=== PATIENT | female | born 1980 | race Caucasian/White ===

== ENCOUNTER 2017-01-15 02:31 | Emergency (ER) | payer MEDICAID ==
[~2017-01-15] VITALS: Ht 165.1 cm; Wt 68.0 kg
--- NOTE | 2017-01-15 02:35 | NUR ---
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 PT PLACED ON MONITOR WITH SR ON THE MONITOR. VS WNL. PT VERY IRRITABLE. RAC 20G IV PLACED WITH LABS DRAWN. AWAITING MD ORDERS.
[2017-01-15] MEDS ORDERED: ONDANSETRON HCL/PF 4 MG/2 ML VIAL IVP ONE (03:00)
[2017-01-15] MEDS ORDERED: IV NS 0.9% 1,000 ML BAG IV ONE (03:00)
[2017-01-15] MEDS ORDERED: HYDROMORPHONE INJ 2 MG/ML DISP.SYRIN IV ONE (03:00)
[2017-01-15] MEDS ORDERED: ONDANSETRON HCL/PF 4 MG/2 ML VIAL ONE (03:02)
[2017-01-15] MEDS ORDERED: HYDROMORPHONE INJ 2 MG/ML DISP.SYRIN ONE (03:02)
[2017-01-15 03:05] LABS: BASOPHILS # (AUTO) 0.1 /CMM (0.0-0.2); BASOPHILS % (AUTO) 0.5 % (0.0-2.0); EOSINOPHILS # (AUTO) 0.3 /CMM (0.0-0.7); EOSINOPHILS % (AUTO) 2.2 % (0.0-6.0); HEMATOCRIT 40 % (33-45); HEMOGLOBIN 13.3 g/dL (11.5-14.8); LYMPHOCYTES % (AUTO) 13.6 % (20.0-44.0); MEAN CORPUSCULAR HEMOGLOBIN 29 PG (26.0-33.0); MEAN CORPUSCULAR HGB CONC 34 g/dl (31.0-36.0); MEAN CORPUSCULAR VOLUME 87 fL (82-100); MONOCYTES # (AUTO) 0.6 /CMM (0.1-1.30); MONOCYTES % (AUTO) 3.8 % (2.0-12.0); NEUTROPHILS # (AUTO) 11.9 /CMM (1.8-8.9); NEUTROPHILS % (AUTO) 79.9 % (43.0-81.0); PLATELET COUNT (AUTO) 245 /CMM (150-450); RDW COEFFICIENT OF VARIATION 12.4 (11.5-15.0); RED BLOOD CELL COUNT(AUTO) 4.55 MIL/uL (4.0-5.2); WHITE BLOOD COUNT (AUTO) 14.9 K/uL (4.3-11.0)
--- NOTE | 2017-01-15 03:15 | NUR ---
PT IS IN CT
[2017-01-15 03:24] LABS: ALANINE AMINOTRANSFERASE 25 U/L (12-78); ALBUMIN 4.2 g/dL (3.4-5.0); ALKALINE PHOSPHATASE 51 U/L (46-116); ASPARTATE AMINOTRANSFERASE 14 U/L (15-37); BILIRUBIN,DIRECT 0.1 mg/dL (0.0-0.2); BILIRUBIN,TOTAL 0.5 mg/dL (0.2-1.0); CALCIUM, SERUM 9.5 mg/dL (8.5-10.1); CARBON DIOXIDE 26 mmol/L (21-32); CHLORIDE 104 mmol/L (98-107); CREATININE 0.8 mg/dL (0.6-1.3); GLUCOSE 151 mg/dL (74-106); LIPASE 362 U/L (73-393); POTASSIUM 3.3 mmol/L (3.5-5.1); SODIUM SERUM 142 mmol/L (136-145); TOTAL PROTEIN, SERUM 7.5 g/dL (6.4-8.2); UREA NITROGEN, BLOOD 14 mg/dL (7-18)
[2017-01-15 03:26] LABS: INR 1.05 (0.87-1.13); PROTHROMBIN TIME 10.9 SECS (9.5-12.7); TROPONIN I < 0.017 ng/mL (0.00-0.056)
--- NOTE | 2017-01-15 03:27 | NUR ---
PT RETURN FROM CT SCAN
--- NOTE | 2017-01-15 04:10 | NUR ---
URINE COLLECTED. SENT TO LAB
[2017-01-15 04:33] LABS: APPEARANCE,URINE SL CLOUDY (CLEAR); BILIRUBIN,URINE NEGATIVE (NEGATIVE); BLOOD, URINE 1+ Ery/uL (NEGATIVE); COLOR,URINE YELLOW (YELLOW); KETONES,URINE 3+ (NEGATIVE); LEUKOCYTE ESTERASE ,URINE NEGATIVE (NEGATIVE); NITRITE, URINE NEGATIVE (NEGATIVE); PROTEIN,URINE NEGATIVE (NEGATIVE); UGLUCOSE NEGATIVE (NEGATIVE)
[2017-01-15 04:39] LABS: BACTERIA,URINE None seen /HPF (None Seen); SQUAMOUS EPITHELIAL CELL,UR Few /HPF (None Seen)
[2017-01-15 04:40] LABS: URINE AMORPHOUS PHOSPHATES Few /HPF (None Seen)
--- NOTE | 2017-01-15 04:48 | NUR ---
DR. PHILLIPS AT BEDSIDE SPEAKING TO PT REGARDING RESULTS
--- NOTE | 2017-01-15 04:56 | NUR ---
IV removed. Catheter intact and site benign. Pressure and 4x4 applied to site. No bleeding noted. Patient discharged to home in stable condition. Written and verbal after care instructions given. Patient verbalizes understanding of instruction. ambulatory with a steady gait. instructed not to drive. pt verbalize understanding. pt accompanied by boyfriend
[2017-01-15 04:58] VITALS: BP 105/63
== END 2017-01-15 04:58 | disposition home or self-care (01) ==
LOC: ER 02:34
DX: A08.4 Viral intestinal infection, unspecified (principal); Z90.710 Acquired absence of both cervix and uterus
CPT/HCPCS: 36415; 71010; 74176; 80048; 80076; 81001; 83690; 84484; 85025; 85730; 93005; 96361; 96374; 96375; 99285; A4606; J1170; J2405; J7030; Z7610; 81000-TC